=== PATIENT | female | born 1985 | race Native Hawaiian/Other Pacific Islander ===

== ENCOUNTER 2022-03-28 05:17 | Emergency (ER) | payer OTHER ==
[~2022-03-28] VITALS: Ht 165.1 cm; Wt 63.5 kg
[2022-03-28 05:24] VITALS: TEMP 98.4
[2022-03-28 06:50] VITALS: BP 122/81
== END 2022-03-28 06:50 | disposition home or self-care (01) ==
LOC: ED 05:17
DX: S93.491A Sprain of other ligament of right ankle, initial encounter (principal); W17.2XXA Fall into hole, initial encounter; Y92.096 Garden or yard of other non-institutional residence as the place of occurrence of the external cause
CPT/HCPCS: 96372; 99283; J1885